=== PATIENT | male | born 1965 | race Hispanic/Latino ===

== ENCOUNTER 2023-03-27 22:21 | Emergency (ER) | payer SELFPAY ==
[2023-03-27] MEDS ORDERED: methocarbamoL 750 MG TAB ONE (23:05)
[2023-03-27] MEDS ORDERED: IBUPROFEN 400 MG TAB ONE (23:06)
[2023-03-27] MEDS ORDERED: ONDANSETRON 4 MG (ODT) TAB ONE (23:06)
[2023-03-27] MEDS ORDERED: TRAMADOL HCL 50 MG TAB ONE (23:06)
--- NOTE | 2023-03-28 00:28 | ER ---
Nurse's Notes [facility] Name: Loyd Beach Sr Age: 57 yrs Sex: Male : 1965 Arrival Date: 03/27/2023 Time: 22:21 Bed 15 Private MD: Diagnosis: Acute left neck pain, acute left trapezius pain, acute musculoskeletal pain, cervical spine degenerative arthritis Presentation: 03/27 22:39 Chief complaint: Patient states: I have a lot of neck pain and stiffness. It is more on kd3 the left side that started all this morning when i woke. I don't think I slept on it wrong. It feels like it is spasms. 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 Coronavirus screen: Vaccine status: Patient reports receiving the 2nd dose of the covid vaccine. Ebola Screen: No symptoms or risks identified at this time. Initial Sepsis Screen: Does the patient meet any 2 criteria? No. Patient's initial sepsis screen is negative. Does the patient have a suspected source of infection? No. Patient's initial sepsis screen is negative. Risk Assessment: Do you want to hurt yourself or someone else? Patient reports no desire to harm self or others. Onset of symptoms was March 27, 2023. 22:39 Method Of Arrival: Ambulatory kd3 22:39 Acuity: [id number] 3 kd3 Triage Assessment: 22:43 General: Appears uncomfortable, Behavior is calm, cooperative. Pain: Complains of pain kd3 in left side of neck. Historical: - Allergies: 22:43 No Known Allergies; kd3 - Immunization history:: Adult Immunizations up to date. - Social history:: Smoking status: Patient/guardian denies using tobacco, but has a distant history of tobacco abuse. - Family history:: not pertinent. Screenin/23 00:01 [facility] ED Fall Risk Assessment (Adult) History of falling in the last 3 months, pf1 including since admission No falls in past 3 months (0 pts) Confusion or Disorientation No (0 pts) Intoxicated or Sedated No (0 pts) Impaired Gait No (0 pts) Mobility Assist Device Used No (0 pt) Altered Elimination No (0 pt) Score/Fall Risk Level 0 - 2 = Low Risk Oriented to surroundings, Maintained a safe environment, Educated pt \T\ family on fall prevention, incl call for assistance when getting out of bed, Assessed \T\ reinforced patient's understanding of fall precautions, Provided non-skid footwear, Hourly rounding (assess needs \T\ fall precautionary measures) done, Used ambulatory aids as needed (educated on \T\ assisted with), Used gait belt as appropriate. Abuse screen: Denies threats or abuse. Nutritional screening: No deficits noted. Tuberculosis screening: No symptoms or risk factors identified. Assessment: 03/27 22:50 General: Appears in no apparent distress. uncomfortable, well groomed, well developed, pf1 Behavior is calm, cooperative, appropriate for age, quiet. 22:50 Pain: Complains of pain in more pain to left side of neck and some pain to the right pf1 side neck Pain currently is 5 out of 10 on a pain scale. Pain began 0700 this AM upon waking up. Neuro: No deficits noted. Level of Consciousness is awake, alert, obeys commands, Oriented to person, place, time, situation. Cardiovascular: No deficits noted. Capillary refill < 3 seconds Patient's skin is warm and dry. Respiratory: No deficits noted. Airway is patent Respiratory effort is even, unlabored, Respiratory pattern is regular, symmetrical. GI: No deficits noted. No signs and/or symptoms were reported involving the gastrointestinal system. : No deficits noted. No signs and/or symptoms were reported regarding the genitourinary system. EENT: No deficits noted. No signs and/or symptoms were reported regarding the EENT system. Derm: No deficits noted. No signs and/or symptoms reported regarding the dermatologic system. Musculoskeletal: Circulation, motion, and sensation intact. Capillary refill < 3 seconds, Reports pain in bilateral neck pain. 23:50 Reassessment: Patient appears in no apparent distress at this time. Patient and/or pf1 family updated on plan of care and expected duration. Pain level reassessed. Patient is alert, oriented x 3, equal unlabored respirations, skin warm/dry/pink. Patient states symptoms have improved. Vital Signs: 22:39 Pulse 94; Resp 19; Temp 98.5(O); Pulse Ox 100% ; kd3 22:39 BP 120 / 77; Weight 77.11 kg; Height 5 ft. 5 in. ; kd3 23:30 BP 121 / 67; Pulse 80; Resp 16; Pulse Ox 100% on R/A; Pain 5/10; pf1 03/28 00:20 BP 108 / 66; Pulse 76; Resp 16; Pulse Ox 99% on R/A; pf1 03/27 22:39 Body Mass Index 28.29 (77.11 kg, 165.1 cm) kd3 23:30 Pain Scale: Adult pf1 ED Course: 03/27 22:22 Patient arrived in ED. ja2 22:24 Ibrahima Arnold MD is Attending Physician. sp4 22:43 Triage completed. kd3 22:43 Arm band placed on right wrist. kd3 22:44 Patient has correct armband on for positive identification. Bed in low position. Call pf1 light in reach. 23:28 Ree Hatfield RN is Primary Nurse. pf1 23:40 CT C Spine In Process Unspecified. EDMS 03/28 00:03 No provider procedures requiring assistance completed. pf1 00:26 Zenon Bardales MD is Referral Physician. sp4 00:39 Patient did not have IV access during this emergency room visit. pf1 Administered Medications: 03/27 23:05 Drug: traMADol PO 50 mg Route: PO; pf1 03/28 00:06 Follow up: Response: No adverse reaction; Marked relief of symptoms; Pain is decreased; pf1 RASS: Alert and Calm (0) 03/27 23:05 Drug: Ibuprofen PO 800 mg Route: PO; pf1 03/28 00:06 Follow up: Response: No adverse reaction; Marked relief of symptoms; Pain is decreased pf1 03/27 23:05 Drug: Methocarbamol PO 750 mg Route: PO; pf1 03/28 00:05 Follow up: Response: No adverse reaction; Marked relief of symptoms; Pain is decreased; pf1 RASS: Alert and Calm (0) 03/27 23:05 Drug: Ondansetron PO 4 mg Route: PO; pf1 03/28 00:05 Follow up: Response: No adverse reaction; Marked relief of symptoms pf1 00:25 Drug: [place] PO 10 mg-325 mg 1 tabs Route: PO; pf1 00:38 Follow up: Response: No adverse reaction; Marked relief of symptoms; Pain is decreased pf1 00:25 Drug: Cyclobenzaprine PO 10 mg Route: PO; pf1 00:38 Follow up: Response: No adverse reaction; Marked relief of symptoms; Pain is decreased pf1 Medication: 00:39 VIS not applicable for this client. pf1 Outcome: 00:28 Discharge ordered by . sp4 00:38 Discharged to home ambulatory, with family. pf1 00:38 Condition: improved 00:38 Instructed on discharge instructions, follow up and referral plans. Demonstrated understanding of instructions, follow-up care, medications, Prescriptions given X 3. 00:39 Patient left the ED. pf1 Signatures: Dispatcher [employer] EDMS Lety Nuñez2 Maria Ines Hernandez, RN RN kd3 Ree Hatfield RN RN pf1 Ibrahima Arnold MD MD sp4
--- NOTE | 2023-03-28 00:29 | EDPHYS ---
Physician Documentation [facility] Name: Loyd Beach Sr Age: 57 yrs Sex: Male : 1965 Arrival Date: 03/27/2023 Time: 22:21 Bed 15 Private MD: ED Physician Ibrahima Arnold HPI: 03/27 22:24 This 57 yrs old Male presents to ER via Unassigned with complaints of Neck and sp4 Upper Back Pain. 03/28 00:22 This 57 yrs old Male presents to ER via Ambulatory with complaints of Neck and sp4 Upper Back Pain. 00:22 Very pleasant 57-year-old male with no significant past medical history presents with sp4 acute onset left trapezius left-sided neck pain starting this morning. Patient cannot recall any significant physical activity. Denied any prior history of neck pain or shoulder pain. . Historical: - Allergies: 03/27 22:43 No Known Allergies; kd3 - Immunization history:: Adult Immunizations up to date. - Social history:: Smoking status: Patient/guardian denies using tobacco, but has a distant history of tobacco abuse. - Family history:: not pertinent. ROS: 03/28 00:22 Constitutional: Negative for fever, chills, and weight loss, Eyes: Negative for injury, sp4 pain, redness, and discharge, ENT: Negative for injury, pain, and discharge, Neck: Negative for injury, and swelling, positive left-sided neck pain. Cardiovascular: Negative for chest pain, palpitations, and edema, Respiratory: Negative for shortness of breath, cough, wheezing, and pleuritic chest pain, Abdomen/GI: Negative for abdominal pain, nausea, vomiting, diarrhea, and constipation, Back: Negative for injury and pain, : Negative for injury, bleeding, discharge, and swelling, MS/Extremity: Negative for injury and deformity, positive left-sided shoulder trapezius pain Skin: Negative for injury, rash, and discoloration, Neuro: Negative for headache, weakness, numbness, tingling, and seizure, Psych: Negative for depression, anxiety, Allergy/Immunology: Negative for hives, rash, and allergies Endocrine: Negative for neck swelling, polydipsia, polyuria, polyphagia, and weight changes Hematologic/Lymphatic: Negative for swollen nodes, abnormal bleeding, and unusual bruising Exam: 00:22 Constitutional: This is a well developed, well nourished patient who is awake, alert, sp4 and in no acute distress. Head/Face: Normocephalic, atraumatic. Eyes: Pupils equal round and reactive to light, extra-ocular motions intact. Lids and lashes normal. Conjunctiva and sclera are not injected. Cornea within normal limits. Periorbital areas with no swelling, redness, or edema. ENT: Nares patent. No nasal discharge, no septal abnormalities noted. Tympanic membranes are normal and external auditory canals are clear. Oropharynx with no redness, swelling, or masses, exudates, or evidence of obstruction, uvula midline. Mucous membranes moist. Neck: Trachea midline, no thyromegaly or masses palpated, and no cervical lymphadenopathy. Supple, full range of motion without nuchal rigidity, or vertebral point tenderness. Chest/axilla: Normal chest wall appearance and motion. Nontender with no deformity. No lesions are appreciated. Cardiovascular: Regular rate and rhythm with a normal S1 and S2. No gallops, murmurs, or rubs. Normal PMI, no JVD. No pulse deficits. Respiratory: Lungs have equal breath sounds bilaterally, clear to auscultation and percussion. No rales, rhonchi or wheezes noted. No increased work of breathing, no retractions or nasal flaring. Abdomen/GI: Soft, non-tender, with normal bowel sounds. No distension or tympany. No guarding or rebound. No evidence of tenderness throughout. Back: No spinal tenderness. No costovertebral tenderness. Skin: Warm, dry with normal turgor. Normal color with no rashes, no lesions, and no evidence of cellulitis. MS/ Extremity: Pulses equal, no cyanosis. Neurovascular intact. Full, normal range of motion. Positive tenderness to left trapezius and left neck musculature Neuro: Awake and alert, GCS 15, oriented to person, place, time, and situation. Cranial nerves II-XII grossly intact. Motor strength 5/5 in all extremities. Sensory grossly intact. Psych: Awake, alert, with orientation to person, place and time. Behavior, mood, and affect are within normal limits Vital Signs: 03/27 22:39 Pulse 94; Resp 19; Temp 98.5(O); Pulse Ox 100% ; kd3 22:39 BP 120 / 77; Weight 77.11 kg; Height 5 ft. 5 in. ; kd3 23:30 BP 121 / 67; Pulse 80; Resp 16; Pulse Ox 100% on R/A; Pain 5/10; pf1 03/28 00:20 BP 108 / 66; Pulse 76; Resp 16; Pulse Ox 99% on R/A; pf1 03/27 22:39 Body Mass Index 28.29 (77.11 kg, 165.1 cm) kd3 23:30 Pain Scale: Adult pf1 MDM: 03/27 22:26 Patient medically screened. sp4 03/28 00:14 ED course: CLINICAL HISTORY: neck pain acute. COMPARISON: None. FINDINGS: No acute sp4 osseous abnormality identified. Vertebral body height and alignment are maintained. No atlantodental interval widening. Atlantoaxial alignment is maintained. The facet joints are well aligned. The posterior elements are intact. The occipital condyles are well aligned with the C1 lateral masses. The transverse foramina are intact. Mild facet arthrosis on the right at C4-5. C2-C3: No significant central canal or neuroforaminal narrowing. C3-C4: No significant central canal or neuroforaminal narrowing. C4-C5: No significant central canal or neuroforaminal narrowing. C5-C6: Small posterior disc osteophyte complex. Mild disc height loss. No significant central canal or neuroforaminal narrowing. C6-C7: Small posterior disc osteophyte complex. Mild disc height loss. No significant central canal or neuroforaminal narrowing. Paraspinal soft tissues: No prevertebral soft tissue swelling. No evidence of epidural hematoma. No acute findings in the demonstrated portions of the lung apices. Chronic dental disease. IMPRESSION: 1. No acute osseous abnormality identified throughout the cervical spine. 2. Mild degenerative changes. Electronically signed by: Nydia Little MD 03/28/2023 12:01 AM . 00:20 Differential diagnosis: Cervical Raiculopathy Cervical Spondylosis cervical strain, sp4 Degenerative Disc Disease. Data reviewed: vital signs, nurses notes, radiologic studies, CT scan. 00:22 ED course: Patient pain has improved after medications. The range of motion is full , sp4 no sign of neurologic compromise. ED course: Patient will be discharged home with arm sling and as needed pain medications. 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 03/27 22:43 Order name: CT C Spine sp4 03/28 00:31 Order name: Jillian; Complete Time: 00:38 sp4 Administered Medications: 03/27 23:05 Drug: traMADol PO 50 mg Route: PO; pf1 03/28 00:06 Follow up: Response: No adverse reaction; Marked relief of symptoms; Pain is decreased; pf1 RASS: Alert and Calm (0) 03/27 23:05 Drug: Ibuprofen PO 800 mg Route: PO; pf1 03/28 00:06 Follow up: Response: No adverse reaction; Marked relief of symptoms; Pain is decreased pf1 03/27 23:05 Drug: Methocarbamol PO 750 mg Route: PO; pf1 03/28 00:05 Follow up: Response: No adverse reaction; Marked relief of symptoms; Pain is decreased; pf1 RASS: Alert and Calm (0) 03/27 23:05 Drug: Ondansetron PO 4 mg Route: PO; pf1 03/28 00:05 Follow up: Response: No adverse reaction; Marked relief of symptoms pf1 00:25 Drug: [place] PO 10 mg-325 mg 1 tabs Route: PO; pf1 00:38 Follow up: Response: No adverse reaction; Marked relief of symptoms; Pain is decreased pf1 00:25 Drug: Cyclobenzaprine PO 10 mg Route: PO; pf1 00:38 Follow up: Response: No adverse reaction; Marked relief of symptoms; Pain is decreased pf1 Disposition Summary: 03/28/23 00:28 Discharge Ordered Location: Home sp4 Problem: new sp4 Symptoms: have improved sp4 Condition: Stable sp4 Diagnosis - Acute left neck pain, acute left trapezius pain, acute musculoskeletal pain, sp4 cervical spine degenerative arthritis Followup: sp4 - With: Zenon Bardales MD - When: 10 - 14 days - Reason: Recheck today's complaints Discharge Instructions: - Discharge Summary Sheet sp4 - Cervical Radiculopathy, [id number] sp4 Prescriptions: - naproxen 250 mg Oral tablet - take 2 tablet by ORAL route every 12 hours; 60 tablet; Refills: 0, Product sp4 Selection Permitted - Cyclobenzaprine 10 mg Oral Tablet - take 1 tablet by ORAL route every 8 hours As needed; 30 tablet; Refills: 0, sp4 Product Selection Permitted - Tramadol 50 mg Oral Tablet - take 1 tablet by ORAL route every 8 hours as needed; 12 tablet; Refills: 0, sp4 Product Selection Permitted Signatures: Dispatcher [employer] Maria Ines Chaudhary RN RN kd3 Ree Hatfield RN RN pf1 Ibrahima Arnold MD MD sp4
[2023-03-28] MEDS ORDERED: CYCLOBENZAPRINE 10 MG TAB ONE (00:32)
[2023-03-28] MEDS ORDERED: HYDROCODONE/APAP 10/325 TAB ONE (00:32)
[2023-03-28 01:10] VITALS: TEMP 98.5
[2023-03-28 01:12] VITALS: BP 108/66; O2SAT 99
--- NOTE | 2023-03-28 11:43 | RAD REPORT ---
EXAM DESCRIPTION: CT - C Spine Wo Con - 03/28/2023 12:10 am CLINICAL HISTORY: Neck pain acute. TECHNIQUE: CT of the cervical spine was performed without contrast. Axial, coronal, and sagittal rec onstructions were created and sent to PACS. This exam was performed according to our departmental dose-optimization program which includes use of Automated Exposure Control, adjustment of the mA and/or kV according to patient size and/or use of i terative reconstruction technique. COMPARISON: None. FINDINGS: No acute osseous abnormality identified. Vertebral body height and alignment are maintaine d. No atlantodental interval widening. Atlantoaxial alignment is maintained. The facet joints are wel l aligned. The posterior elements are intact. The occipital condyles are well aligned with the C1 lat eral masses. The transverse foramina are intact. Mild facet arthrosis on the right at C4-5. C2-C3: No significant central canal or neuroforaminal narrowing. C3-C4: No significant central canal or neuroforaminal narrowing. C4-C5: No significant central canal or neuroforaminal narrowing. C5-C6: Small posterior disc osteophyte complex. Mild disc height loss. No significant central canal o r neuroforaminal narrowing. C6-C7: Small posterior disc osteophyte complex. Mild disc height loss. No significant central canal o r neuroforaminal narrowing. Paraspinal soft tissues: No prevertebral soft tissue swelling. No evidence of epidural hematoma. No a cute findings in the demonstrated portions of the lung apices. Chronic dental disease. IMPRESSION: 1. No acute osseous abnormality identified throughout the cervical spine. 2. Mild degenerative changes. Electronically signed by: Nydia Little MD 03/28/2023 12:01 AM CDT Due to temporary technical issues with the PACS/Fluency reporting system, reports are being signed by the in house radiologist without review as a courtesy to ensure prompt reporting. The interpreting r adiologist is fully responsible for the content of the report.
== END 2023-03-28 00:39 | disposition home or self-care (01) ==
LOC: ER 22:21
DX: M47.892 Other spondylosis, cervical region (principal); M79.18 Myalgia, other site
CPT/HCPCS: 72125; 99284; Q0162

== ENCOUNTER 2023-05-02 23:20 | Emergency (ER) | payer SELFPAY ==
[2023-05-03 02:01] LABS: Absolute Lymphocytes (CBC) 2.3 K/uL (0.7-4.9); Hematocrit 21.3 % (39.6-49.0); Lymphocytes % 33.4 % (15.3-44.8); MCV 56.2 fL (80-100); MPV 8.1 fL (7.6-11.3); RBC Red Blood Cell Count 3.78 M/uL (4.33-5.43)
[2023-05-03 02:14] LABS: ALT/SGPT 15 U/L (16-61); AST/SGOT 9 U/L (15-37); Albumin 2.3 g/dL (3.4-5.0); Alkaline Phosphatase 77 U/L (45-117); BUN Blood Urea Nitrogen 14 mg/dL (7-18); Bicarbonate 28 mEq/L (21-32); Bilirubin Total 0.1 mg/dL (0.2-1.0); Glomerular Filtration Rate 106 ml/min (=/>90); Glucose Level 129 mg/dL (74-106); NT PRO-BNP 64 pg/mL (<125); Potassium 3.8 mEq/L (3.5-5.1); Protein, Total 5.6 g/dL (6.4-8.2); Sodium Level 144 mEq/L (136-145); Troponin High Sensitivity 3.5 pg/mL (<58.9)
[2023-05-03 02:15] LABS: Bilirubin Direct < 0.1 mg/dL (0-0.2); Bilirubin Indirect, Calculated ND mg/dL (0.2-0.8)
[2023-05-03 02:30] LABS: Anisocytosis 1+; Blood Morphology Comment NOTED (NOT SEEN); Platelet Estimate ADEQ; White Blood Cell Scan OK (OK)
[2023-05-03 02:31] LABS: Hypochromasia 3+; Poikilocytosis 1+; Polychromasia 1+
[2023-05-03] MEDS ORDERED: NA CHLORIDE 0.9% 250 ML ONE ×2 (04:55→08:14)
--- NOTE | 2023-05-03 10:35 | EDPHYS ---
Physician Documentation [facility] Name: Loyd Beach Sr Age: 57 yrs Sex: Male : 1965 Arrival Date: 05/02/2023 Time: 23:20 Bed 4 Private MD: ED Physician Nino Ballesteros HPI: 05/03 02:27 This 57 yrs old Male presents to ER via Ambulatory with complaints of Feet rt Swelling. 02:27 Patient presents to the ED with bilateral lower extremity swelling which she first rt noticed today. The patient states that he is currently taking iron supplementation by the [place] for hemoglobin of less than 7. He is only taken 2 doses of these. The patient denies chest pain, shortness of breath. Denies other acute complaints at this time, symptoms are moderate severity, no other aggravating alleviating factors. Historical: - Allergies: 00:02 No Known Allergies; vc1 - Home Meds: 00:02 None [Active]; vc1 - PMHx: 00:02 None; vc1 - PSHx: 00:02 None; vc1 - Immunization history:: Client reports receiving the Valerio \T\ Valerio single-dose vaccine. - Social history:: Smoking status: Patient denies any tobacco usage or history of. - Family history:: not pertinent. ROS: 02:27 Constitutional: Negative for fever, chills, and weight loss, Respiratory: Negative for rt shortness of breath, cough, wheezing, and pleuritic chest pain, Abdomen/GI: Negative for abdominal pain, nausea, vomiting, diarrhea, and constipation, Skin: Negative for injury, rash, and discoloration, Neuro: Negative for headache, weakness, numbness, tingling, and seizure, Psych: Negative for depression, anxiety, suicide ideation, homicidal ideation, and hallucinations. 02:27 Cardiovascular: Positive for edema, Negative for chest pain. 02:27 Abdomen/GI: Negative for Hematemesis, hematochezia, melena. 02:27 MS/extremity: Positive for swelling, Negative for injury or acute deformity. Exam: 02:27 Constitutional: This is a well developed, well nourished patient who is awake, alert, rt and in no acute distress. Head/Face: Normocephalic, atraumatic. Chest/axilla: Normal chest wall appearance and motion. Nontender with no deformity. No lesions are appreciated. Cardiovascular: Regular rate and rhythm with a normal S1 and S2. No gallops, murmurs, or rubs. Normal PMI, no JVD. No pulse deficits. Respiratory: Lungs have equal breath sounds bilaterally, clear to auscultation and percussion. No rales, rhonchi or wheezes noted. No increased work of breathing, no retractions or nasal flaring. Abdomen/GI: Soft, non-tender, with normal bowel sounds. No distension or tympany. No guarding or rebound. No evidence of tenderness throughout. Neuro: Awake and alert, GCS 15, oriented to person, place, time, and situation. Cranial nerves II-XII grossly intact. Motor strength 5/5 in all extremities. Sensory grossly intact. Cerebellar exam normal. Normal gait. Psych: Awake, alert, with orientation to person, place and time. Behavior, mood, and affect are within normal limits. 02:27 Musculoskeletal/extremity: 2+ bilateral lower extremity edema. 02:27 ECG was reviewed by the Attending Physician. rt Vital Signs: 00:01 Weight 75.75 kg; Height 5 ft. 5 in. ; Pain 3/10; vc1 00:03 BP 101 / 59; Pulse 62; Resp 18; Temp 97.1; Pulse Ox 100% ; vc1 01:49 BP 103 / 66; Pulse 72; Resp 15; Pulse Ox 100% on R/A; kd3 02:36 BP 101 / 60; Pulse 67; Resp 17; Pulse Ox 100% on R/A; kd3 05:37 BP 90 / 57; Pulse 56; Resp 19; Temp 98.2; Pulse Ox 99% ; kd3 06:57 BP 97 / 53; Pulse 48; Resp 19; Pulse Ox 100% on R/A; kd3 07:52 BP 93 / 61; Pulse 54; Resp 15; Pulse Ox 99% on R/A; hb 10:09 BP 109 / 63; Pulse 61; Resp 18; Pulse Ox 100% on R/A; ph 10:44 BP 108 / 64; Pulse 59; Resp 17; Pulse Ox 99% on R/A; Pain 0/10; hb 00:01 Body Mass Index 27.79 (75.75 kg, 165.1 cm) vc1 00:01 Pain Scale: Adult vc1 10:44 Pain Scale: Adult hb MDM: 00:38 Patient medically screened. rt 02:27 Differential Diagnosis CHF, symptomatic anemia, venous insufficiency, renal failure. rt Data reviewed: vital signs, nurses notes, lab test result(s), EKG. Consideration of Admission/Observation Escalation of care including admission/observation considered. Patient with no active bleeding currently. This anemia is a known issue, [facility] We will give patient 2 units of blood, patient otherwise stable for outpatient care at this time. He is desirous of discharge. Return precautions discussed.. Test considered but Not performed: X-ray: No shortness of breath, chest x-ray. Care significantly affected by the following chronic conditions: Anemia. Counseling: I had a detailed discussion with the patient and/or guardian regarding: the historical points, exam findings, and any diagnostic results supporting the discharge/admit diagnosis, lab results, the need for outpatient follow up, to return to the emergency department if symptoms worsen or persist or if there are any questions or concerns that arise at home. 07:24 Transition of care: Care assumed from Kale Krishnamurthy MD. nj3 10:37 I considered the following discharge prescriptions or medication management in the nj3 emergency department Medications were administered in the Emergency Department. See MAR. Independent interpretation of the following test(s) in the Emergency Department stem teacher: rate is 70 beats/min, Rhythm is normal sinus rhythm, regular, with no ectopy, Interpretation: normal rate, normal rhythm. ED course: Patient blood pressure remained stable, patient denies black, or bloody stools, shortness of breath, lightheadedness. Discussed necessity of patient following [facility] with [facility] in 1 to 2 days. Patient understands and agrees with plan. All questions were answered. Return precautions discussed include worsening symptoms, or any other concerns.. 05/03 00:42 Order name: Basic Metabolic Panel; Complete Time: 02:15 rt 05/03 00:42 Order name: CBC with Diff rt 05/03 00:42 Order name: LFT's; Complete Time: 02:15 rt 05/03 00:42 Order name: Magnesium; Complete Time: 02:15 rt 05/03 00:42 Order name: NT PRO-BNP; Complete Time: 02:15 rt 05/03 00:42 Order name: Troponin HS; Complete Time: 02:15 rt 05/03 02:04 Order name: CBC Smear Scan EDDC 05/03 02:25 Order name: Type And Screen rt 05/03 02:36 Order name: Packed RBC Leukored EDDC 05/03 03:23 Order name: ABO/RH no charge EDMS 05/03 00:42 Order name: EKG; Complete Time: 00:42 rt 05/03 00:42 Order name: Cardiac monitoring; Complete Time: 01:48 rt 05/03 00:42 Order name: EKG - Nurse/Tech; Complete Time: 01:48 rt 05/03 00:42 Order name: IV Saline Lock; Complete Time: :49 rt 05/03 00:42 Order name: Labs collected and sent; Complete Time: 49 rt 05/03 00:42 Order name: O2 Per Protocol; Complete Time: rt 05/03 00:42 Order name: O2 Sat Monitoring; Complete Time: :49 rt EC:27 Rate is 88 beats/min. Rhythm is regular, Normal Sinus Rhythm with No ectopy. QRS [place] rt is Normal. [place] interval is normal. QRS interval is normal. QT interval is normal. No Q waves. T waves are Normal. No ST changes noted. Administered Medications: No medications were administered Disposition Summary: 05/03/23 10:35 Discharge Ordered Location: Home ms3 Problem: new ms3 Symptoms: have improved ms3 Condition: Stable ms3 Diagnosis - Anemia, unspecified ms3 - Edema, unspecified ms3 Followup: rt - With: Private Physician - When: 2 - 3 days - Reason: Discharge Instructions: - Discharge Summary Sheet rt - Anemia rt - Peripheral Edema rt Forms: - Medication Reconciliation Form ms3 - Thank You Letter ms3 - Antibiotic Education ms3 - Prescription Opioid Use ms3 - Patient Portal Instructions ms3 Prescriptions: - Lasix 20 mg Oral Tablet - take 1 tablet by ORAL route once daily; 7 tablet; Refills: 0, Product Selection rt Permitted Signatures: Dispatcher [facility] Nino Ballesteros DO DO ms3 Chelsea Curtis RN RN vc1 Kale Krishnamurthy MD MD rt Corrections: (The following items were deleted from the chart) 02:37 02:26 PACKED RBC LEUKORED+BB.LAB.BRZ ordered. EDDC EDMS 02:37 02:28 ABO/RH typing ordered. EDDC EDMS 02:37 02:28 Antibody Screen ordered. EDMS EDMS
--- NOTE | 2023-05-03 10:35 | ER ---
Nurse's Notes [facility] Name: Loyd Beach Sr Age: 57 yrs Sex: Male : 1965 Arrival Date: 05/02/2023 Time: 23:20 Bed 4 Private MD: Diagnosis: Anemia, unspecified;Edema, unspecified Presentation: 05/03 00:01 Chief complaint: Patient states: both of my feet are swelling. Coronavirus screen: vc1 Vaccine status: Patient reports receiving the 1st dose of the Covid vaccine. Client denies travel out of the [place] in the last 14 days. At this time, the client does not indicate any symptoms associated with coronavirus-19. Ebola Screen: Patient negative for fever greater than or equal to 101.5 degrees Fahrenheit, and additional compatible Ebola Virus Disease symptoms Patient denies exposure to infectious person. Patient denies travel to an Ebola-affected area in the 21 days before illness onset. No symptoms or risks identified at this time. Risk Assessment: Do you want to hurt yourself or someone else? Patient reports no desire to harm self or others. Onset of symptoms was May 02, 2023. 00:01 Method Of Arrival: Ambulatory vc1 00:01 Acuity: [id number] 3 vc1 00:03 Initial Sepsis Screen: Does the patient meet any 2 criteria? No. Patient's initial vc1 sepsis screen is negative. Does the patient have a suspected source of infection? No. Patient's initial sepsis screen is negative. Historical: - Allergies: 00:02 No Known Allergies; vc1 - Home Meds: 00:02 None [Active]; vc1 - PMHx: 00:02 None; vc1 - PSHx: 00:02 None; vc1 - Immunization history:: Client reports receiving the Valerio \T\ Valerio single-dose vaccine. - Social history:: Smoking status: Patient denies any tobacco usage or history of. - Family history:: not pertinent. Screenin:02 [place] ED Fall Risk Assessment (Adult) History of falling in the last 3 months, kd3 including since admission No falls in past 3 months (0 pts) Confusion or Disorientation No (0 pts) Intoxicated or Sedated No (0 pts) Impaired Gait No (0 pts) Mobility Assist Device Used No (0 pt) Altered Elimination No (0 pt) Score/Fall Risk Level 0 - 2 = Low Risk Maintained a safe environment. Abuse screen: Denies threats or abuse. Denies injuries from another. Nutritional screening: No deficits noted. Tuberculosis screening: No symptoms or risk factors identified. Assessment: 01:49 General: Appears in no apparent distress. Behavior is calm, cooperative. Pain: Denies kd3 pain. 02:37 Reassessment: No changes from previously documented assessment. Patient and/or family kd3 updated on plan of care and expected duration. Pain level reassessed. Patient denies pain at this time. 05:38 General: Appears in no apparent distress. Behavior is calm, cooperative. Pain: Denies kd3 pain. Neuro: Level of Consciousness is awake, alert, obeys commands, Oriented to person, place, time, situation. Cardiovascular: Patient's skin is warm and dry. Respiratory: Airway is patent Trachea midline Respiratory effort is even, unlabored, Respiratory pattern is regular, symmetrical. 06:57 Reassessment: No changes from previously documented assessment. Patient and/or family kd3 updated on plan of care and expected duration. Pain level reassessed. Patient denies pain at this time. 07:23 General: First Unit of PRBC complete. No Adverse reaction . kd3 07:51 Reassessment: Blood bank contacted for second unit PRBCs, awaiting cross match at this hb time. 08:15 Reassessment: Second unit PRBCs started. Pt AOx4, NAD, alert and talkative. See hb transfusion flowsheet for vitals/reassessments. 09:45 Reassessment: Second unit PRCS completed. NAD. VSS. hb 10:43 Reassessment: OK to DC without repeat H7H per Dr. Ballesteros. hb Vital Signs: 00:01 Weight 75.75 kg; Height 5 ft. 5 in. ; Pain 3/10; vc1 00:03 BP 101 / 59; Pulse 62; Resp 18; Temp 97.1; Pulse Ox 100% ; vc1 01:49 BP 103 / 66; Pulse 72; Resp 15; Pulse Ox 100% on R/A; kd3 02:36 BP 101 / 60; Pulse 67; Resp 17; Pulse Ox 100% on R/A; kd3 05:37 BP 90 / 57; Pulse 56; Resp 19; Temp 98.2; Pulse Ox 99% ; kd3 06:57 BP 97 / 53; Pulse 48; Resp 19; Pulse Ox 100% on R/A; kd3 07:52 BP 93 / 61; Pulse 54; Resp 15; Pulse Ox 99% on R/A; hb 10:09 BP 109 / 63; Pulse 61; Resp 18; Pulse Ox 100% on R/A; ph 10:44 BP 108 / 64; Pulse 59; Resp 17; Pulse Ox 99% on R/A; Pain 0/10; hb 00:01 Body Mass Index 27.79 (75.75 kg, 165.1 cm) vc1 00:01 Pain Scale: Adult vc1 10:44 Pain Scale: Adult hb ED Course: 05/02 23:23 Patient arrived in ED. ag3 23:24 Kale Krishnamurthy MD is Attending Physician. rt 05/03 00:02 Triage completed. vc1 00:03 Arm band placed on right wrist. vc1 01:29 Maria Ines Hernandez, VETO is Primary Nurse. kd3 01:49 Basic Metabolic Panel Sent. kd3 01:49 CBC with Diff Sent. kd3 01:49 LFT's Sent. kd3 01:49 Magnesium Sent. kd3 01:49 NT PRO-BNP Sent. kd3 01:49 Troponin HS Sent. kd3 01:49 Inserted saline lock: 20 gauge in left antecubital area, using aseptic technique. Blood kd3 collected. 02:02 Patient has correct armband on for positive identification. Provided Education on: . kd3 07:24 Attending Physician role handed off by Kale Krishnamurthy MD ms3 07:24 Nino Ballesteros DO is Attending Physician. ms3 10:44 No provider procedures requiring assistance completed. IV discontinued, intact, hb bleeding controlled, No redness/swelling at site. Administered Medications: No medications were administered Medication: 02:03 VIS not applicable for this client. kd3 Outcome: 10:35 Discharge ordered by . ms3 10:44 Discharged to home ambulatory. hb 10:44 Condition: stable 10:44 Discharge instructions given to patient, Instructed on discharge instructions, follow up and referral plans. medication usage, Demonstrated understanding of instructions, follow-up care, medications, Prescriptions given X 1. 11:11 Patient left the ED. Signatures: Park Deal RN RN Reina Avila RN RN Pao Snowden RN RN hb Sarah Mcnair ag3 Nino Ballesteros DO DO ms3 Maria Ines Hernandez RN RN kd3 Chelsea Curtis RN RN vc1 Kale Krishnamurthy MD MD rt Corrections: (The following items were deleted from the chart) 10:43 08:15 Reassessment: Second unit PRBCs started. Pt AOx4, NAD, alert and talkative. hb hb
[2023-05-03 11:38] VITALS: TEMP 98.2
[2023-05-03 11:43] VITALS: BP 108/64; O2SAT 99
--- NOTE | 2023-05-04 13:13 | EKG ---
Test Date: 2023-05-03 Test Time: 01:40:14 House Mover Supervisor: JAZMYN MEASUREMENT RESULTS: Intervals: Rate: 88 NM: 140 QRSD: 74 QT: 358 QTc: 433 [place]: P: 45 NM: 140 QRS: 32 T: 24 INTERPRETIVE STATEMENTS: Normal sinus rhythm with sinus arrhythmia Normal ECG No previous ECG available for comparison Electronically Signed On 05-04-23 13:11:09 CDT by Ottoniel Cardenas
== END 2023-05-03 11:11 | disposition home or self-care (01) ==
LOC: ER 23:20
PROC: 30233N1 Transfusion of Nonautologous Red Blood Cells into Peripheral Vein, Percutaneous Approach (ICD-10-PCS; principal; 2023-05-03)
DX: D64.9 Anemia, unspecified (principal)
CPT/HCPCS: 36415; 80048; 80076; 83735; 83880; 84484; 85025; 86850; 86900; 86901; 86920; 93005; 99284; J7050; P9016

== ENCOUNTER 2024-06-07 07:18 | Emergency (ER) | payer SELFPAY ==
--- OUTSIDE RECORDS SUMMARY | 2024-06-07 07:22 | XMS REPORT | Continuity of Care Document ---
Author Name Unknown Address [address] [facility] [place] [address] [facility] thconnect Address [address] [facility] [address] [place] [address] Care Team Providers Care Medical Billing Associate Name Role Phone Pcp, Patient Does Not Have A Primary Care Physic jada Doctor Unassigned, [facility] Attending Clinician U Tammie Torres RN Attending Clinician Сергей lujan Lab, [facility] Pob I Attending Clinician Shadi Parker Attending Clinician [phone] Nurse, [facility] Pob I Attending Clinician Unavail SHADI Connolly Attending Clinician Unavailable Pob1, Acute [facility] Clinic Attending Clinician Valentina Singh RN Attending Clinician UnavailRahat Leung Attending Clinician [phone] Payers Payer Name Policy Type Policy Number Effective Date Expirati on Date Source Problems Condition Name Condition Details Condition Category Status Onset Date Resolution Date Last Treatment Date Treating Clinician Comments Source No known active problems No known active problems Disease [facility] Allergies, Adverse Reactions, Alerts Allergy Name Allergy Type Status Severity Reaction(s) Onset Date Inactive Date Treating Clinician Comments Source NO KNOWN ALLERGIE S Drug Class Active [facility] Social History Social Habit Start Date Stop Date Quantity Comments Source Sexual orientation [facility] Exposure to SARS-CoV-2 (event) 2020-04-15 00:00:00 2020-05-15 18:10:00 Not sure [facility] Sex Assigned At 1965 00:00:00 1965 00:00:00 [facility] Smoking Status Start Date Stop Date Source Tobacco smoking consumption unknown [facility] Medications Ordered Medication Name Filled Medication Name Start Date Stop Date Current Medication? Ordering Clinician Indication Dosage Frequency Signature (SIG) Comments Components Source acetaminoph en (TYLENOL) tablet 1,000 mg 05-16 01:15: 00 05-16 00:18 :00 No 1000mg 1,000 mg, Oral, ONCE, 1 dose, 05/15/20 at 2015, NATACHA [facility] acute hospital ibuprofen 600 mg tablet 05-15 00:00: 00 Yes [id number] 600mg Take 1 tablet by mouth every 6 (six) hours as needed for Pain (scale 4-6). [facility] acute hospital benzonatate 200 mg capsule 05-15 00:00: 00 Yes [id number] 200mg Take 1 capsule by mouth 3 (three) times daily as needed for Cough for up to 20 doses. General acute hospital ondansetron (ZOFRAN ODT) 4 mg disintegrat ing tablet 05-15 00:00: 00 Yes [id number] 4mg Take 1 tablet by mouth every 8 (eight) hours as needed for Nausea and Vomiting (N/V). [facility] acute hospital Vital Signs Vital Name Observation Time Observation Value Comments S ource Oxygen saturation in Arterial blood by Pulse oximetry 2020-05-30 18:30:00 95 /min [facility] Systolic blood pressure 2020-05-30 18:27:00 110 mm[Hg] [facility] Diastolic blood pressure 2020-05-30 18:27:00 76 mm[Hg] [facility] Heart rate 2020-05-30 18:27:00 88 /min [facility] Body temperature 2020-05-30 18:27:00 36.89 April [facility] Respiratory rate 2020-05-30 18:27:00 18 /min [facility] Body height 2020-05-30 18:27:00 165.1 cm [facility] Body weight 2020-05-30 18:27:00 72.576 kg [facility] BMI 2020-05-30 18:27:00 26.63 kg/m2 [facility] Oxygen saturation in Arterial blood by Pulse oximetry 2020-05-30 18:30:00 95 /min [facility] Systolic blood pressure 2020-05-30 18:27:00 110 mm[Hg] [facility] Diastolic blood pressure 2020-05-30 18:27:00 76 mm[Hg] [facility] Heart rate 2020-05-30 18:27:00 88 /min [facility] Body temperature 2020-05-30 18:27:00 36.89 April [facility] Respiratory rate 2020-05-30 18:27:00 18 /min [facility] Body height 2020-05-30 18:27:00 165.1 cm [facility] Body weight 2020-05-30 18:27:00 72.576 kg [facility] BMI 2020-05-30 18:27:00 26.63 kg/m2 [facility] Systolic blood pressure 2020-05-15 23:14:00 127 mm[Hg] [facility] Diastolic blood pressure 2020-05-15 23:14:00 79 mm[Hg] [facility] Heart rate 2020-05-15 23:14:00 108 /min [facility] Body temperature 2020-05-15 23:14:00 39.89 April [facility] Respiratory rate 2020-05-15 23:14:00 18 /min [facility] Body height 2020-05-15 23:14:00 165.1 cm [facility] Body weight 2020-05-15 23:14:00 72.576 kg [facility] BMI 2020-05-15 23:14:00 26.63 kg/m2 [facility] Oxygen saturation in Arterial blood by Pulse oximetry 2020-05-15 23:14:00 94 /min [facility] Systolic blood pressure 2020-05-15 23:14:00 127 mm[Hg] [facility] Diastolic blood pressure 2020-05-15 23:14:00 79 mm[Hg] [facility] Heart rate 2020-05-15 23:14:00 108 /min [facility] Body temperature 2020-05-15 23:14:00 39.89 April [facility] Respiratory rate 2020-05-15 23:14:00 18 /min [facility] Body height 2020-05-15 23:14:00 165.1 cm [facility] Body weight 2020-05-15 23:14:00 72.576 kg [facility] BMI 2020-05-15 23:14:00 26.63 kg/m2 [facility] Oxygen saturation in Arterial blood by Pulse oximetry 2020-05-15 23:14:00 94 /min [facility] Procedures Procedure Date / Time Performed Performing Clinician Source PATIENT QUESTIONNAIRE 2020-06-20 05:01:00 Doctor Unassigned, [facility] NOTICE OF PRIVACY PRACTICES 2020-05-15 23:02:57 Doctor Unassigned, [facility] Encounters Start Date/Time End Date/Time Encounter Type Admission Type Attending Clinicians Care Facility Care Department Encounter ID Source 2020-06-20 00:00:00 2020-06-20 00:00:00 Orders Only Doctor Unassigned, [facility] [id number] [id number] [id number] [id number] 2020-06-20 00:00:00 2020-06-20 00:00:00 Orders Only Doctor Unassigned, [facility] [id number] 350.1.13.10 4.2.7.2.686 [id number] General acute hospital 2020-06-10 00:00:00 2020-06-10 00:00:00 Letter (Out) [facility] [id number] 350.1.13.10 4.2.7.2.686 [id number] 2020-06-10 00:00:00 2020-06-10 00:00:00 Letter (Out) [facility] [id number] 350.1.13.10 4.2.7.2.686 [id number] General acute hospital 2020-06-10 00:00:00 2020-06-10 00:00:00 Patient Secure Msg Doctor Unassigned, [facility] [id number] 350.1.13.10 [id number] [id number] General acute hospital 2020-06-09 10:01:33 2020-06-09 10:21:33 Laboratory Only Lab, [facility] Fam Pob [facility] [address] 1.840.114 350.1.13.10 4.2.7.2.686 [id number] 2020-06-09 10:01:33 2020-06-09 10:21:33 Laboratory Only Lab, Stacey Nickerson Pob I Jose AntonioShadi [facility] [address] 1.840.114 350.1.13.10 4.2.7.2.686 [id number] General acute hospital 2020-06-09 10:00:00 2020-06-09 10:00:00 Outpatient R [facility] [id number] General acute hospital 2020-06-05 00:00:00 2020-06-05 00:00:00 Telephone Nurse, Stacey Nickerson Pob [facility] [address] 1.0.114 350.1.13.10 4.2.7.2.686 [id number] General acute hospital 2020-06-05 00:00:00 2020-06-05 00:00:00 Telephone Nurse, Stacey Nickerson Pob [facility] [address] 1.840.114 350.1.13.10 4.2.7.2.686 [id number] 2020-05-31 00:00:00 2020-05-31 00:00:00 Patient Secure Msg Doctor Unassigned, [facility] [id number] 350.1.13.10 4.2.7.2.686 [id number] General acute hospital 2020-05-30 16:40:00 2020-05-30 16:40:00 Outpatient R JOSE ANTONIO [facility] [id number] General acute hospital 2020-05-30 13:20:08 2020-05-30 13:40:08 Ur[facility] Po[facility] [id number] 350.1.13.10 4.2.7.2.686 [id number] General acute hospital 2020-05-30 13:20:08 2020-05-30 13:40:08 Urgent Care [address] 1.2.840.114 350.1.13.10 4.2.7.2.686 [id number] 2020-05-16 00:00:00 2020-05-16 00:00:00 Telephone [facility] [id number] 350.1.13.10 4.2.7.2.686 [id number] General acute hospital 2020-05-16 00:00:00 2020-05-16 00:00:00 Telephone [facility] [id number] 350.1.13.10 4.2.7.2.686 [id number] 2020-05-15 18:17:00 2020-05-15 19:56:00 Emergency Rahat Carter [facility] 1.2.840.114 350.1.13.10 4.2.7.2.686 [id number] General acute hospital 2020-05-15 18:17:00 2020-05-15 19:56:00 Emergency Rahat Carter [facility] 1.2.840.114 350.1.13.10 4.2.7.2.686 [id number] 2020-05-15 18:04:00 2020-05-15 18:04:00 Emergency X [facility] ERT [id number] General acute hospital
--- NOTE | 2024-06-07 07:40 | ER ---
Nurse's Notes [facility] Name: Loyd Beach Age: 58 yrs Sex: Male : 1965 Arrival Date: 06/07/2024 Time: 07:18 Bed 13 Private MD: Diagnosis: Insect bite, cellulitis, abscess Presentation: 06/07 07:35 Chief complaint: Patient states: LEFT FA GOLF BALL SIZED ABSCESS x1 WK. Coronavirus bp screen: At this time, the client does not indicate any symptoms associated with coronavirus-19. Ebola Screen: No symptoms or risks identified at this time. Initial Sepsis Screen: Does the patient meet any 2 criteria? No. Patient's initial sepsis screen is negative. Does the patient have a suspected source of infection? No. Patient's initial sepsis screen is negative. Risk Assessment: Do you want to hurt yourself or someone else? Patient reports no desire to harm self or others. Onset of symptoms is unknown. 07:35 Method Of Arrival: Ambulatory bp 07:35 Acuity: [id number] 4 bp Triage Assessment: 07:37 Bite description: bite sustained to palmar aspect of left forearm by N/A, animal bp information: vaccination(s) is not applicable. General: Appears in no apparent distress. Behavior is calm, cooperative, appropriate for age. Pain: Complains of pain in palmar aspect of left forearm. Derm: Abscess located on palmar aspect of left forearm is golf ball sized. Musculoskeletal: No deficits noted. Historical: - Allergies: 07:37 No Known Allergies; bp - Home Meds: 07:37 None [Active]; bp - PMHx: 07:37 None; bp - Immunization history:: Adult Immunizations up to date. - Infectious Disease History:: Denies. - Social history:: Smoking status: Patient denies any tobacco usage or history of. Screenin:38 [facility] ED Fall Risk Assessment (Adult) History of falling in the last 3 months, bp including since admission No falls in past 3 months (0 pts) Confusion or Disorientation No (0 pts) Intoxicated or Sedated No (0 pts) Impaired Gait No (0 pts) Mobility Assist Device Used No (0 pt) Altered Elimination No (0 pt) Score/Fall Risk Level 0 - 2 = Low Risk Oriented to surroundings. Abuse screen: Denies threats or abuse. Denies injuries from another. Nutritional screening: No deficits noted. Tuberculosis screening: No symptoms or risk factors identified. Assessment: 07:38 General: Appears in no apparent distress. Behavior is calm, cooperative, appropriate bp for age. Derm: Skin is intact, Skin is pink, warm \T\ dry. Abscess located on palmar aspect of left forearm is golf ball sized. Vital Signs: 07:35 BP 141 / 73; Pulse 81; Resp 16; Temp 98.5; Pulse Ox 100% ; bp ED Course: 07:21 Patient arrived in ED. ra3 07:21 Kang Manjarrez MD is Attending Physician. sp3 07:34 Dashawn Jurado, RN is Primary Nurse. bp 07:37 Triage completed. bp 07:37 Arm band placed on. bp 07:38 Patient has correct armband on for positive identification. bp 07:38 No provider procedures requiring assistance completed. Patient did not have IV access bp during this emergency room visit. Administered Medications: No medications were administered Medication: 07:38 VIS not applicable for this client. bp Outcome: 07:40 Discharge ordered by . sp3 07:41 Discharged to home ambulatory, bp 07:41 Condition: stable 07:41 Discharge instructions given to patient, Instructed on discharge instructions, follow up and referral plans. medication usage, wound care, Demonstrated understanding of instructions, follow-up care, medications, wound care, Prescriptions given X 1, 07:42 Patient left the ED. bp Signatures: Dashawn Jurado, RN RN bp Kang Manjarrez MD MD sp3 [place] ra3
--- NOTE | 2024-06-07 07:40 | EDPHYS ---
Physician Documentation [facility] Name: Loyd Beach Age: 58 yrs Sex: Male : 1965 Arrival Date: 06/07/2024 Time: 07:18 Bed 13 Private MD: ED Physician Kang Manjarrez HPI: 06/07 07:37 This 58 yrs old Male presents to ER via Unassigned with complaints of Insect sp3 Bite - Psbl spider bite. 07:37 58-year-old male with no significant past medical history presents with probable insect sp3 bite and surface cellulitis/abscess on the left medial distal forearm. Patient denies any proximal streaking, fever, joint pain, necrosis, black skin, or any other signs or symptoms on ROS at this time.. Historical: - Allergies: 07:37 No Known Allergies; bp - Home Meds: 07:37 None [Active]; bp - PMHx: 07:37 None; bp - Immunization history:: Adult Immunizations up to date. - Infectious Disease History:: Denies. - Social history:: Smoking status: Patient denies any tobacco usage or history of. ROS: 07:38 Constitutional: Negative for fever, chills, and weight loss, Eyes: Negative for injury, sp3 pain, redness, and discharge, Neck: Negative for injury, pain, and swelling, Cardiovascular: Negative for chest pain, palpitations, and edema, Respiratory: Negative for shortness of breath, cough, wheezing, and pleuritic chest pain, Abdomen/GI: Negative for abdominal pain, nausea, vomiting, diarrhea, and constipation, Back: Negative for injury and pain, Neuro: Negative for headache, weakness, numbness, tingling, and seizure, Psych: Negative for depression, anxiety, suicide ideation, homicidal ideation, and hallucinations, Allergy/Immunology: Negative for hives, rash, and allergies, Endocrine: Negative for neck swelling, polydipsia, polyuria, polyphagia, and marked weight changes, 07:38 All other systems are negative, Exam: 07:38 Constitutional: This is a well developed, well nourished patient who is awake, alert, sp3 and in no acute distress. Head/Face: Normocephalic, atraumatic. Chest/axilla: Normal chest wall appearance and motion. Nontender with no deformity. No lesions are appreciated. Cardiovascular: Regular rate and rhythm with a normal S1 and S2. No gallops, murmurs, or rubs. Normal PMI, no JVD. No pulse deficits. Respiratory: Lungs have equal breath sounds bilaterally, clear to auscultation and percussion. No rales, rhonchi or wheezes noted. No increased work of breathing, no retractions or nasal flaring. Neuro: Awake and alert, GCS 15, oriented to person, place, time, and situation. Cranial nerves II-XII grossly intact. Motor strength 5/5 in all extremities. Sensory grossly intact. Cerebellar exam normal. Normal gait. Psych: Awake, alert, with orientation to person, place and time. Behavior, mood, and affect are within normal limits. 07:38 Musculoskeletal/extremity: 2 cm area of erythema and mild swelling with probable cellulitis and developing underlying abscess noted. No active draining. No proximal streaking. No joint pain.. Vital Signs: 07:35 BP 141 / 73; Pulse 81; Resp 16; Temp 98.5; Pulse Ox 100% ; bp MDM: 07:21 Patient medically screened. sp3 07:39 Data reviewed: vital signs, nurses notes, old medical records. ED course: 58-year-old sp3 male with cellulitis and infected insect bite on the left distal forearm. Probable early abscess as well. Will place on Bactrim and warm compresses with spontaneous abscess resolution and home versus patient returning if this does not occur.. Administered Medications: No medications were administered Disposition Summary: 06/07/24 07:40 Discharge Ordered Notes: Location: Home sp3 Condition: Stable sp3 Diagnosis - Insect bite, cellulitis, abscess sp3 Followup: sp3 - With: Private Physician - When: Upon discharge from the Emergency Department - Reason: Recheck today's complaints, Continuance of care Discharge Instructions: - Discharge Summary Sheet sp3 - Insect Bite, Adult sp3 Forms: - Medication Reconciliation Form sp3 - Antibiotic Education sp3 - Prescription Opioid Use sp3 - Patient Portal Instructions sp3 - Leadership Thank You Letter sp3 Prescriptions: - Bactrim DS 800-160 mg Oral Tablet - take 1 tablet ORAL route every 12 hours for 7 days; 14 tablet; Refills: 0, sp3 Product Selection Permitted Signatures: Dashawn Jurado RN RN bp Manjarrez, Setul, MD MD sp3
[2024-06-07 07:47] VITALS: BP 141/73; TEMP 98.5; O2SAT 100
== END 2024-06-07 07:42 | disposition home or self-care (01) ==
LOC: ER 07:18
DX: L03.114 Cellulitis of left upper limb (principal); L02.414 Cutaneous abscess of left upper limb
CPT/HCPCS: 99283